=== PATIENT | female | born 1990 | race African-American/Black ===

== ENCOUNTER 2016-07-22 16:43 | Emergency (ER) | payer SELFPAY ==
[2016-07-22] MEDS ORDERED: ASPIRIN 81 MG TABLET, CHEWABLE PO ONE (18:17)
--- NOTE | 2016-07-22 18:18 | ER Document Report ---
ED Medical Screen (RME) - General Stated Complaint: CHEST DISCOMFORT Mode of Arrival: Wheelchair Information source: Patient, Relative - Notes: Patient presents to the emergency department with complaints of chest heaviness and left arm pain. Patient reports she fell down steps 2 weeks ago and had bruising to her chest. She was evaluated at a hospital and discharged home. She reports now her chest feels heavy. She reports she has a headache very weak no appetite. She reports a lot of heartburn. Denies any past medical history. I have greeted and performed a rapid initial assessment of this patient. A comprehensive ED assessment and evaluation of the patient, analysis of test results and completion of the medical decision making process will be conducted by additional ED providers. Physical Exam - Vital signs Vitals: Temp Pulse Resp BP Pulse Ox 98.5 F 78 16 117/71 99 07/22/16 16:47 07/22/16 16:47 07/22/16 16:47 07/22/16 16:47 07/22/16 16:47 Course - Vital Signs Vital signs: Temp Pulse Resp BP Pulse Ox 98.5 F 78 16 117/71 99 07/22/16 16:47 07/22/16 16:47 07/22/16 16:47 07/22/16 16:47 07/22/16 16:47
[2016-07-22 19:02] LABS: ABSOLUTE BASOPHILS # (AUTO) 0.1 10^3/uL (0.0-0.2); ABSOLUTE EOSINOPHILS # (AUTO) 0.7 10^3/uL (0.0-0.6); ABSOLUTE LYMPHOCYTES (AUTO) 1.7 10^3/uL (0.5-4.7); ABSOLUTE MONOCYTES (AUTO) 0.7 10^3/uL (0.1-1.4); ABSOLUTE NEUT (AUTO) 5.2 10^3/uL (1.7-8.2); BASOPHILS % (AUTO) 0.8 % (0-2); HEMATOCRIT 37.7 % (36.0-47.0); HEMOGLOBIN 12.7 g/dL (12.0-15.5); HGB HCT DIFFERENCE 0.4; LYMPHOCYTES % (AUTO) 20.7 % (13-45); MEAN CORPUSCULAR HGB CONC 33.7 g/dL (32.0-36.0); MEAN CORPUSCULAR VOLUME 86 fl (80-97); MONOCYTES % (AUTO) 7.9 % (3-13); RED BLOOD COUNT 4.39 10^6/uL (3.72-5.28); RED CELL DISTRIBUTION WIDTH 14.4 % (11.5-14.0); SEGMENTED NEUTROPHILS % (AUTO) 62.6 % (42-78); WHITE BLOOD COUNT 8.3 10^3/uL (4.0-10.5)
[2016-07-22 19:07] LABS: APPEARANCE,URINE SLIGHTLY-CLOUDY; BILIRUBIN,URINE NEGATIVE (NEGATIVE); GLUCOSE, URINE NEGATIVE (NEGATIVE); KETONES,URINE TRACE mg/dL (NEGATIVE); LEUKOCYTE ESTERASE,URINE MODERATE (NEGATIVE); NITRITE,URINE NEGATIVE (NEGATIVE); PROTEIN,URINE NEGATIVE (NEGATIVE); URINE SPECIFIC GRAVITY 1.014; UROBILINOGEN,URINE NEGATIVE mg/dL (<2.0)
[2016-07-22 19:24] LABS: ALANINE AMINOTRANSFERASE 22 U/L (9-52); ALBUMIN 4.3 g/dL (3.5-5.0); ALKALINE PHOSPHATASE 103 U/L (38-126); ANION GAP 12 (5-19); ASPARTATE AMINO TRANSFERASE 34 U/L (14-36); BILIRUBIN,TOTAL 0.7 mg/dL (0.2-1.3); BLOOD UREA NITROGEN 9 mg/dL (7-20); CALCIUM 10.1 mg/dL (8.4-10.2); CARBON DIOXIDE 25 mmol/L (22-30); CHLORIDE 104 mmol/L (98-107); CREATININE RESULT 0.73 mg/dL (0.52-1.25); GLUCOSE 86 mg/dL (75-110); POTASSIUM 4.3 mmol/L (3.6-5.0); SODIUM 140.9 mmol/L (137-145); TOTAL PROTEIN 10.6 g/dL (6.3-8.2)
--- NOTE | 2016-07-22 19:41 | EKG REPORT ---
SEVERITY:- NORMAL ECG - SINUS RHYTHM : Confirmed by: Priya Muñoz 22-Jul-2016 19:41:19
[2016-07-22] MEDS ORDERED: MAG HYDROX/AL HYDROX/SIMETH SUSP 30 ML UDCUP PO ONE (19:45)
[2016-07-22] MEDS ORDERED: METOCLOPRAMIDE HCL ORAL SOLN 10 MG/10 ML UDCUP PO ONE (19:45)
[2016-07-22] MEDS ORDERED: LIDOCAINE 2% VISCOUS SOLN 20 ML UDCUP PO ONE (19:45)
--- NOTE | 2016-07-22 19:59 | ER Document Report ---
ED General - General Chief Complaint: Chest Congestion Stated Complaint: CHEST DISCOMFORT Mode of Arrival: Wheelchair Information source: Patient Notes: 25-year-old female presents with multiple complaints. Patient notes that she is having some difficulty hearing complaining of gastric reflux complaining of left shoulder pain left anterior chest wall pain. Patient notes she fell about 2 weeks ago and since then she's been feeling achy. Patient has had gastric reflux her life. Denies any fevers or chills nausea. Patient admits to intermittent decreased appetite - HPI Onset: Other Onset/Duration: Persistent Quality of pain: Achy Severity: Mild Pain Level: 1 Associated symptoms: Body/muscle aches, Earache, Nausea, Vomiting Exacerbated by: Movement Relieved by: Denies Similar symptoms previously: No Recently seen / treated by doctor: No Past Medical History - General Information source: Patient, Relative - - Social History Smoking Status: Never Smoker Cigarette use (# per day): No Chew tobacco use (# tins/day): No Smoking Education Provided: No Family History: Reviewed & Not Pertinent Review of Systems - Review of Systems Notes: PHYSICAL EXAMINATION: GENERAL: Well-appearing, well-nourished and in no acute distress. HEAD: Atraumatic, normocephalic. EYES: Pupils equal round and reactive to light, extraocular movements intact, conjunctiva are normal. ENT: Nares patent, oropharynx clear without exudates. Moist mucous membranes. NECK: Normal range of motion, supple without lymphadenopathy LUNGS: Breath sounds clear to auscultation bilaterally and equal. No wheezes rales or rhonchi. HEART: Regular rate and rhythm without murmurs reproducible chest wall tenderness ABDOMEN: Soft, nontender, nondistended abdomen. No guarding, no rebound. No masses appreciated. Female : deferred Musculoskeletal: Normal range of motion, no pitting or edema. No cyanosis. NEUROLOGICAL: Cranial nerves grossly intact. Normal speech, normal gait. Normal sensory, motor exams PSYCH: Normal mood, normal affect. SKIN: Warm, Dry, normal turgor, no rashes or lesions noted. Physical Exam - Vital signs Vitals: Temp Pulse Resp BP Pulse Ox 98.5 F 78 16 117/71 99 07/22/16 16:47 07/22/16 16:47 07/22/16 16:47 07/22/16 16:47 07/22/16 16:47 Course - Re-evaluation Re-evalutation: 07/22/16 19:57 Physical examination notes no significant abnormality lab work x-ray was negative. Patient does not have cardiac related chest pain. Patient will be treated for her gastric reflux and otherwise stable for discharge After performing a Medical Screening Examination, I estimate there is LOW risk for RUPTURED ESOPHAGUS, PNEUMOTHORAX, PULMONARY EMBOLISM, ACUTE CORONARY SYNDROME, OR THORACIC AORTIC DISSECTION, thus I consider the discharge disposition reasonable. The patient and I have discussed the diagnosis and risks , and we agree with discharging home with close follow-up. We also discussed returning to the Emergency Department immediately if new or worsening symptoms occur. We have discussed the symptoms which are most concerning (e.g., bloody sputum, worsening pain or shortness of breath) that necessitate immediate return. - Vital Signs Vital signs: Temp Pulse Resp BP Pulse Ox 98.5 F 78 16 117/71 99 07/22/16 16:47 07/22/16 16:47 07/22/16 16:47 07/22/16 16:47 07/22/16 16:47 - Laboratory Result Diagrams: 07/22/16 18:35 07/22/16 18:35 Laboratory results interpreted by me: 07/22/16 07/22/16 07/22/16 18:35 18:35 18:35 RDW 14.4 H Eosinophils % 8.0 H Absolute Eosinophils 0.7 H Total Protein 10.6 H Urine Ketones TRACE H Ur Leukocyte Esterase MODERATE H - Diagnostic Test Radiology reviewed: Image reviewed, Reports reviewed - EKG Interpretation by Oh EKG shows normal: Sinus rhythm, Gay, Intervals, QRS Complexes Discharge - Discharge Clinical Impression: Chest wall pain, Gastric reflux Ear pressure Qualifiers: Laterality: bilateral Qualified Code(s): H93.8X3 - Other specified disorders of ear, bilateral Condition: Stable Disposition: HOME, SELF-CARE Instructions: Chest Wall Pain ([facility]) Prescriptions: Famotidine [Pepcid 20 mg Tablet] 20 mg PO DAILY #60 tablet Naproxen 500 mg PO BID #30 tablet Referrals: ADAM GREGORY MD [ACTIVE STAFF] - Follow up tomorrow
[2016-07-22 20:20] VITALS: BP 117/70
== END 2016-07-22 20:14 | disposition home or self-care (01) ==
LOC: ER 16:43
DX: K21.9 Gastro-esophageal reflux disease without esophagitis (principal); R07.89 Other chest pain; H93.8X3 Other specified disorders of ear, bilateral; M25.512 Pain in left shoulder; H92.09 Otalgia, unspecified ear; R63.0 Anorexia; R11.10 Vomiting, unspecified; Z91.81 History of falling
CPT/HCPCS: 93005; 99285; 36415; 84703; 85025; 80053; 81001; 71020; 93010; J3490

== ENCOUNTER 2019-04-01 18:12 | Emergency (ER) | payer SELFPAY ==
[2019-04-01] MEDS ORDERED: ACETAMINOPHEN 325 MG TABLET PO ONE (18:49)
[2019-04-01] MEDS ORDERED: IBUPROFEN 600 MG TABLET PO ONE (18:49)
--- NOTE | 2019-04-01 18:52 | ER Document Report ---
ED Medical Screen (RME) - General Chief Complaint: Leg Pain Stated Complaint: LEG PAIN Time Seen by Provider: 04/01/19 18:40 Primary Care Provider: JAKE ARSHAD MD [Primary Care Provider] - Follow up as needed Notes: Patient is a 28-year-old female who presents the emergency department with a chief complaint of right leg pain. She has had her symptoms for the past 3 weeks. She is now to the point to where she needs help to stand. Patient states the pain is in her right hip, right knee, and right ankle. Patient was seen by urgent care was referred here to the emergency department. Patient also has shortness of breath every once in a while. Patient is a current everyday smoker. Exam: Clear breath sounds. Tenderness to right lower extremity. I have greeted and performed a rapid initial assessment of this patient. A comprehensive ED assessment and evaluation of the patient, analysis of test results and completion of medical decision making process will be conducted by an additional ED providers. - Related Data Allergies/Adverse Reactions: No Known Allergies Allergy (Unverified 07/22/16 19:53) Past Medical History - Social History Frequency of alcohol use: Occasional Drug Abuse: None - Immunizations Hx Diphtheria, Pertussis, Tetanus Vaccination: Yes Physical Exam - Vital signs Vitals: Temp Pulse BP Pulse Ox 98.7 F 76 123/88 H 100 04/01/19 18:21 04/01/19 18:21 04/01/19 18:21 04/01/19 18:21 Course - Vital Signs Vital signs: Temp Pulse Resp BP Pulse Ox 98.7 F 76 123/88 H 100 04/01/19 18:21 04/01/19 18:21 04/01/19 18:21 04/01/19 18:21 Doctor's Discharge - Discharge Referrals: JAKE ARSHAD MD [Primary Care Provider] - Follow up as needed
--- NOTE | 2019-04-01 19:45 | RADIOLOGY REPORT (SQ) ---
EXAM DESCRIPTION: ANKLE RIGHT COMPLETE COMPLETED DATE/TIME: 04/01/2019 7:19 pm REASON FOR STUDY: RLE pain COMPARISON: None. EXAM PARAMETERS: NUMBER OF VIEWS: Three views. TECHNIQUE: AP, lateral and oblique radiographic images acquired of the right ankle. LIMITATIONS: None. FINDINGS: MINERALIZATION: Normal. BONES: No acute fracture or dislocation. No worrisome bone lesions. JOINTS: No effusion. SOFT TISSUES: No significant soft tissue swelling. No radiopaque foreign body. OTHER: No other significant finding. IMPRESSION: NO FRACTURE. TECHNICAL DOCUMENTATION: JOB ID: [id number] [place]-72 2010 [employer]- All Rights Reserved Reading location - IP/workstation name: [email or web address]
--- NOTE | 2019-04-01 19:49 | RADIOLOGY REPORT (SQ) ---
EXAM DESCRIPTION: CHEST SINGLE VIEW COMPLETED DATE/TIME: 04/01/2019 7:19 pm REASON FOR STUDY: shortness of breath COMPARISON: None. TECHNIQUE: Single frontal radiographic view of the chest acquired. NUMBER OF VIEWS: One view. LIMITATIONS: None. FINDINGS: LUNGS AND PLEURA: No pneumothorax. Slightly increased interstitial- alveolar opacities. No consolidation or pleural effusion. MEDIASTINUM AND HILAR STRUCTURES: Stable. HEART AND VASCULAR STRUCTURES: Stable. BONES: No acute findings. HARDWARE: None in the chest. OTHER: No other significant finding. IMPRESSION: Slightly increased interstitial- alveolar opacities, nonspecific. No consolidation or p leural effusion. TECHNICAL DOCUMENTATION: JOB ID: [id number] [place]-72 2010 [email or web address]- All Rights Reserved Reading location - IP/workstation name: [email or web address]
--- NOTE | 2019-04-01 19:51 | RADIOLOGY REPORT (SQ) ---
EXAM DESCRIPTION: HIP RIGHT AP/LATERAL COMPLETED DATE/TIME: 04/01/2019 7:19 pm REASON FOR STUDY: RLE pain COMPARISON: None. NUMBER OF VIEWS: Two views. TECHNIQUE: AP pelvis and additional frog-leg view of the right hip. LIMITATIONS: None. FINDINGS: MINERALIZATION: Normal. RIGHT HIP: No fracture or dislocation. Lytic-sclerotic areas in the femoral head, possible AVN. LEFT HIP: No fracture or dislocation. Lytic-sclerotic areas in the femoral head, possible AVN.. PUBIS AND ISCHIUM: No fracture. PELVIS: No fracture. SACRUM: No fracture or dislocation. No worrisome bone lesions. LOWER LUMBAR SPINE: No fracture or dislocation. No worrisome bone lesions. No significant disc disea se. SOFT TISSUES: No findings. OTHER: No other significant finding. IMPRESSION: No fracture or dislocation. Lytic-sclerotic areas in both femoral heads, possible AVN. TECHNICAL DOCUMENTATION: JOB ID: [id number] [place]-72 2010 [employer]- All Rights Reserved Reading location - IP/workstation name: [email or web address]
--- NOTE | 2019-04-01 19:53 | RADIOLOGY REPORT (SQ) ---
EXAM DESCRIPTION: KNEE RIGHT 4 VIEWS COMPLETED DATE/TIME: 04/01/2019 7:19 pm REASON FOR STUDY: RLE pain COMPARISON: None. EXAM PARAMETERS: NUMBER OF VIEWS: Four views. TECHNIQUE: AP, lateral and oblique radiographic images acquired of the right knee. LIMITATIONS: None. FINDINGS: MINERALIZATION: Normal. BONES: No acute fracture or dislocation. No worrisome bone lesions. JOINTS: No effusion. SOFT TISSUES: No significant soft tissue swelling. No radiopaque foreign body. OTHER: No other significant finding. IMPRESSION: NO FRACTURE. TECHNICAL DOCUMENTATION: JOB ID: [id number] [place]-72 2010 [employer]- All Rights Reserved Reading location - IP/workstation name: [email or web address]
--- NOTE | 2019-04-01 22:02 | RADIOLOGY REPORT (SQ) ---
EXAM DESCRIPTION: US EXTREMITY VEINS RIGHT COMPLETED DATE/TME: 04/01/2019 18:49 CLINICAL HISTORY: 28 years, Female, RLE pain COMPARISON: None. TECHNIQUE: LIMITATIONS: None. FINDINGS: There are some prominent lymph nodes in the right groin. The common femoral, femoral, popliteal, posterior tibial and peroneal veins are patent and compressible. Venous Doppler waveforms are unremarkable. IMPRESSION: Prominent lymph nodes in the right groin. No evidence of deep venous thrombosis. copyright 2010 [employer]- All Rights Reserved
[2019-04-01] MEDS ORDERED: ONDANSETRON HCL INJ/PF 4 MG/2 ML SDV IV ONE (23:04)
[2019-04-01] MEDS ORDERED: MORPHINE SULFATE 10 MG/ML INJ IV ONE (23:05)
[2019-04-01] MEDS ORDERED: NORMAL SALINE 1000 ML 1,000 ML IV ONE (23:07)
--- NOTE | 2019-04-01 23:25 | ER Document Report ---
ED General - General Chief Complaint: Leg Pain Stated Complaint: LEG PAIN Time Seen by Provider: 04/01/19 18:40 Primary Care Provider: JAKE ARSHAD MD [PEDIATRICS] - Follow up as needed - HPI Notes: Patient is a 28-year-old female who presents emergency department for evaluation of right leg pain. She states is been ongoing for about 3 weeks. She states is progressive. She is actually to the point where she can barely walk. She denies any known injury. She states she started to have pain in her left leg because she is been compensating so much for the pain in her right. She denies any chest pain or shortness of breath. She states she really cannot describe the pain other than its excruciating. She does relate another type of pain in her right pedraza, that she described as a burning and scraping tight sensation. It is worsened by movement, nothing seems to make it better. - Related Data Allergies/Adverse Reactions: No Known Allergies Allergy (Unverified 07/22/16 19:53) Home Medications: Dupilumab weekly Past Medical History - General Information source: Patient - Social History Smoking Status: Current Every Day Smoker Frequency of alcohol use: Occasional Drug Abuse: None Family History: Reviewed & Not Pertinent Patient has suicidal ideation: No Patient has homicidal ideation: No Skin Medical History: Reports Other - Atopic dermatitis - Immunizations Hx Diphtheria, Pertussis, Tetanus Vaccination: Yes Review of Systems - Review of Systems Constitutional: No symptoms reported EENT: No symptoms reported Cardiovascular: No symptoms reported Respiratory: No symptoms reported Gastrointestinal: No symptoms reported Genitourinary: No symptoms reported Musculoskeletal: See HPI Skin: No symptoms reported Neurological/Psychological: No symptoms reported Physical Exam - Vital signs Vitals: Temp Pulse BP Pulse Ox 98.7 F 76 123/88 H 100 04/01/19 18:21 04/01/19 18:21 04/01/19 18:21 04/01/19 18:21 - Notes Notes: Vital signs reviewed, please refer to chart. Head is normocephalic, atraumatic. Pupils equal round, reactive to light. Neck is supple without meningismus. Heart is regular rate and rhythm. Lungs are clear to auscultation bilaterally. Abdomen is soft, nontender, normoactive bowel sounds throughout. Extremities without cyanosis, clubbing. Examination of the right lower extremity yields no obvious deformity. She has marked tenderness palpation over the greater trochanter. Passive range of motion of the hip elicits some pain. She has tenderness to palpation over the anterior thigh and lateral knee as well. Full range of motion of the knee, ankle, toes. Neurovascularly intact distally. There is no apparent tenderness on palpation of the left lower extremity, or pain elicited with range of motion. Course - Re-evaluation Re-evalutation: 04/02/19 01:18 Patient presents emergency department for evaluation of right leg pain. She had imaging is ordered through triage. Imaging revealed findings concerning for avascular necrosis of the hips. Patient is unable to tell me anything about her family history, she is from [place]. I was concerned about the possibility of sickle cell anemia being the etiology of this. Blood work was ordered, in addition to IV fluids and pain medication. Blood work failed to reveal any signs of sickle cell. On further questioning the patient admits to extensive prednisone therapy in the past for her atopic dermatitis. This is likely the cause of her AVN. I will refer her on to Ortho. She will be sent home with prescription strength anti-inflammatories and pain medication. She is to return to the ED with worsening. - Vital Signs Vital signs: Temp Pulse Resp BP Pulse Ox 98.7 F 76 123/88 H 100 04/01/19 18:21 04/01/19 18:21 04/01/19 18:21 04/01/19 18:21 - Laboratory Result Diagrams: 04/01/19 23:45 04/01/19 23:45 Laboratory results interpreted by me: 04/01/19 04/01/19 23:45 23:45 RDW 14.2 H Eos % (Auto) 8.8 H Chloride 109 H Total Protein 10.5 H - Diagnostic Test Radiology reviewed: Reports reviewed Radiology results interpreted by me: 04/02/19 01:19 Ankle X-Ray 04/01/19 18:49 IMPRESSION: NO FRACTURE. Hip/Pelvis X-Ray 04/01/19 18:49 IMPRESSION: No fracture or dislocation. Lytic-sclerotic areas in both femoral heads, possible AVN. Knee X-Ray 04/01/19 18:49 IMPRESSION: NO FRACTURE. Venous Doppler Study 04/01/19 18:49 IMPRESSION: Prominent lymph nodes in the right groin. No evidence of deep venous thrombosis. copyright 2010 [employer]- All Rights Reserved Chest X-Ray 04/01/19 18:50 IMPRESSION: Slightly increased interstitial- alveolar opacities, nonspecific. No consolidation or pleural effusion. Discharge - Discharge Clinical Impression: Avascular necrosis of right femoral head, Right leg pain, Avascular necrosis of left femoral head Condition: Stable Disposition: HOME, SELF-CARE Instructions: Leg Pain Nonspecific ([facility]) Additional Instructions: Findings on your x-ray were concerning for a condition called avascular necrosis of both of your hips. This needs to be followed up. You have been referred on to orthopedic surgery, as well as to [facility] for [facility]. Take medications as directed for pain. Watch for dizziness, drowsiness, constipation with the pain medication. Return to the emergency department if you develop worsening or new concerning symptoms of any sort. Prescriptions: Naproxen [Naprosyn] 500 mg PO BID #20 tablet Forms: Return to School Referrals: MABEL NORRIS DO [ACTIVE STAFF] - Follow up as needed [facility] [NO [facility]AL MD] - Follow up as needed
[2019-04-02 00:12] LABS: ABSOLUTE EOSINOPHILS # (AUTO) 0.6 10^3/uL (0.0-0.6); ABSOLUTE LYMPHOCYTES (AUTO) 2.1 10^3/uL (0.5-4.7); ABSOLUTE MONOCYTES (AUTO) 0.7 10^3/uL (0.1-1.4); ABSOLUTE NEUT (AUTO) 3.2 10^3/uL (1.7-8.2); ABSOLUTE RETICS # 0.047 10^6/uL (0.028-0.122); BASOPHILS % (AUTO) 0.4 % (0-2); EOSINOPHILS % (AUTO) 8.8 % (0-6); HEMATOCRIT 36.7 % (36.0-47.0); HEMOGLOBIN 12.4 g/dL (12.0-15.5); LYMPHOCYTES % (AUTO) 31.3 % (13-45); MEAN CORPUSCULAR HEMOGLOBIN 28.5 pg (27.0-33.4); MEAN CORPUSCULAR HGB CONC 33.8 g/dL (32.0-36.0); MEAN CORPUSCULAR VOLUME 84 fl (80-97); MONOCYTES % (AUTO) 11.3 % (3-13); PLATELET COUNT 304 10^3/uL (150-450); RED BLOOD COUNT 4.34 10^6/uL (3.72-5.28); RED CELL DISTRIBUTION WIDTH 14.2 % (11.5-14.0); RETICULOCYTE COUNT (AUTO) 1.08 % (0.66-2.85); SEGMENTED NEUTROPHILS % (AUTO) 48.2 % (42-78); TOTAL CELLS COUNTED % (AUTO) 100 %; WHITE BLOOD COUNT 6.6 10^3/uL (4.0-10.5)
[2019-04-02 00:30] LABS: ALBUMIN 3.9 g/dL (3.5-5.0); ALKALINE PHOSPHATASE 76 U/L (38-126); ANION GAP 9 (5-19); ASPARTATE AMINO TRANSFERASE 31 U/L (14-36); BILIRUBIN,DIRECT 0.1 mg/dL (0.0-0.4); BILIRUBIN,TOTAL 0.4 mg/dL (0.2-1.3); BLOOD UREA NITROGEN 8 mg/dL (7-20); CALCIUM 9.5 mg/dL (8.4-10.2); CARBON DIOXIDE 22 mmol/L (22-30); CHLORIDE 109 mmol/L (98-107); GLUCOSE 77 mg/dL (75-110); TOTAL PROTEIN 10.5 g/dL (6.3-8.2)
[2019-04-02] MEDS ORDERED: HYDROCODONE/ACETAMINOPHEN 5-325 MG (6 TAB/ER DISP) PO PRN (01:20)
[2019-04-02 01:55] VITALS: BP 120/81
== END 2019-04-02 01:51 | disposition home or self-care (01) ==
LOC: ER 18:12
DX: M87.851 Other osteonecrosis, right femur (principal); M87.852 Other osteonecrosis, left femur; L20.9 Atopic dermatitis, unspecified; M79.604 Pain in right leg; R26.2 Difficulty in walking, not elsewhere classified; F17.200 Nicotine dependence, unspecified, uncomplicated
CPT/HCPCS: 99284; 96361; 96374; 96375; 36415; 84703; 85025; 85045; 80053; 93971; 73610; 71045; 73502; 73564; J2270; J2405; J7030

== ENCOUNTER 2020-01-13 18:05 | Emergency (ER) | payer SELFPAY ==
--- NOTE | 2020-01-13 19:15 | ER Document Report ---
ED Medical Screen (RME) - General Chief Complaint: Ear Pain Stated Complaint: EAR PAIN,DIZZINESS Time Seen by Provider: 01/13/20 19:07 Information source: Patient Notes: Patient presents complaining of chest pain headache with dizziness. Patient states that she is had some blurred vision. Patient also complains of pressure in her ears. Patient states that she has chronic decreased hearing but her hearing seems to be worse today. Patient denies any nausea or vomiting. I have greeted and performed a rapid initial assessment of this patient. A comprehensive ED assessment and evaluation of the patient, analysis of test results and completion of the medical decision making process will be conducted by additional ED providers. - Related Data Allergies/Adverse Reactions: No Known Allergies Allergy (Verified 01/13/20 19:06) Past Medical History - Social History Frequency of alcohol use: Occasional Drug Abuse: Marijuana - Immunizations Hx Diphtheria, Pertussis, Tetanus Vaccination: Yes Physical Exam - Vital signs Vitals: Temp Pulse Resp BP Pulse Ox 99.7 F 100 18 107/68 100 01/13/20 18:12 01/13/20 18:12 01/13/20 18:12 01/13/20 18:12 01/13/20 18:12 - Respiratory Respiratory status: No respiratory distress Chest status: Tender Breath sounds: Normal - Cardiovascular Rhythm: Regular Heart sounds: S1 appreciated, S2 appreciated Murmur: No Course - Vital Signs Vital signs: Temp Pulse Resp BP Pulse Ox 99.7 F 100 18 107/68 100 01/13/20 18:12 01/13/20 18:12 01/13/20 18:12 01/13/20 18:12 01/13/20 18:12
[2020-01-13 20:28] LABS: ALBUMIN 3.8 g/dL (3.5-5.0); ALKALINE PHOSPHATASE 72 U/L (38-126); ANION GAP 7 (5-19); ASPARTATE AMINO TRANSFERASE 36 U/L (14-36); BILIRUBIN,DIRECT 0.3 mg/dL (0.0-0.4); BILIRUBIN,TOTAL 0.5 mg/dL (0.2-1.3); BLOOD UREA NITROGEN 6 mg/dL (7-20); CALCIUM 9.1 mg/dL (8.4-10.2); CARBON DIOXIDE 23 mmol/L (22-30); CHLORIDE 106 mmol/L (98-107); GLUCOSE 88 mg/dL (75-110); POTASSIUM 4.2 mmol/L (3.6-5.0)
[2020-01-13 20:29] LABS: APPEARANCE,URINE CLEAR; BILIRUBIN,URINE NEGATIVE (NEGATIVE); COLOR,URINE STRAW; GLUCOSE, URINE NEGATIVE (NEGATIVE); KETONES,URINE NEGATIVE (NEGATIVE); LEUKOCYTE ESTERASE,URINE TRACE (NEGATIVE); NITRITE,URINE NEGATIVE (NEGATIVE); PROTEIN,URINE NEGATIVE (NEGATIVE); URINE SPECIFIC GRAVITY 1.006; UROBILINOGEN,URINE NEGATIVE mg/dL (<2.0)
--- NOTE | 2020-01-13 20:33 | RADIOLOGY REPORT (SQ) ---
CT HEAD WITHOUT IV CONTRAST XR CHEST 1 VIEW HISTORY: Headache and blurry vision. COMPARISON: None. TECHNIQUE: 1. CT scan of the brain was performed without IV contrast. 2. Single AP view of the chest was submitted for interpretation. This exam was performed according to our departmental dose-optimization program, which includes automated exposure control, adjustment of the mA and/or kV according to patient size and/or use of iterative reconstruction technique. FINDINGS: The ventricles, cisterns, and sulci are age-appropriate. No evidence of acute infarction, intracranial hemorrhage, extra-axial fluid collection, or midline shift. No air-fluid levels are seen in the paranasal sinuses to suggest acute sinusitis. There is opacification of the bilateral mastoid air cells. No depressed skull fracture. The heart size is within normal limits. There is no pulmonary vascular congestion. No consolidation, pleural effusion, or pneumothorax is seen. The bony structures are preserved. IMPRESSION: 1. No acute intracranial findings. 2. 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 3. No evidence of acute cardiopulmonary disease.
[2020-01-13 20:35] LABS: HEMATOCRIT 37.1 % (36.0-47.0); HEMOGLOBIN 12.8 g/dL (12.0-15.5); MEAN CORPUSCULAR HEMOGLOBIN 29.6 pg (27.0-33.4); MEAN CORPUSCULAR HGB CONC 34.4 g/dL (32.0-36.0); MEAN CORPUSCULAR VOLUME 86 fl (80-97); PLATELET COUNT 278 10^3/uL (150-450); RED BLOOD COUNT 4.32 10^6/uL (3.72-5.28); RED CELL DISTRIBUTION WIDTH 15.3 % (11.5-14.0); WHITE BLOOD COUNT 5.7 10^3/uL (4.0-10.5)
[2020-01-13 20:39] LABS: TOTAL PROTEIN 11.5 g/dL (6.3-8.2)
[2020-01-13 20:56] LABS: ABSOLUTE LYMPHOCYTES# (MANUAL) 2.7 10^3/uL (0.5-4.7); ABSOLUTE MONOCYTES # (MANUAL) 0.1 10^3/uL (0.1-1.4); BASOPHILS % (MANUAL) 0 % (0-2); EOSINOPHILS % (MANUAL) 2 % (0-6); LYMPHOCYTES % (MANUAL) 47 % (13-45); MONOCYTES % (MANUAL) 1 % (3-13); SEGMENTED NEUTROPHILS % (MAN) 50 % (42-78); TOTAL CELLS COUNTED 100
[2020-01-13 20:57] LABS: ANISOCYTOSIS SLIGHT; POIKILOCYTOSIS SLIGHT; TOXIC GRANULATION 1+
[2020-01-13 20:58] LABS: OVALOCYTES SLIGHT; PLATELET COMMENT ADEQUATE; ROULEAUX 1+
--- NOTE | 2020-01-13 21:00 | EKG REPORT ---
SEVERITY:- NORMAL ECG - SINUS RHYTHM : Confirmed by: Clive Rodriguez MD 13-Jan-2020 21:00:00
[2020-01-13 22:12] VITALS: BP 117/82
== END 2020-01-14 01:10 | disposition left against medical advice (07) ==
LOC: ER 18:05
DX: Z53.21 Procedure and treatment not carried out due to patient leaving prior to being seen by health care provider (principal); R07.9 Chest pain, unspecified; R51 Headache; R42 Dizziness and giddiness; H53.8 Other visual disturbances
CPT/HCPCS: 36415; 70450; 71045; 80053; 81001; 83735; 84484; 84703; 85025; 93005; 93010; 99281